=== PATIENT | male | born 1945 | race Asian ===

== ENCOUNTER → 2016-09-11 | Outpatient (CLI) | payer OTHER ==
[~2016-09-11] MED LIST: ALDACTAZIDE PO; ALPHA LIPOIC A100 MG PO; ALPHA LIPOIC AC PO; AUGMENTIN875 MG PO; B COMPLEX1 CA1 PO; BOT PO; CHLORELLA; CHLORELLA CAPS1 EACH PO; CHLORELLA PO; CIPROFLOXA PO; CO Q-1010 MG PO; CORDYCEPS; EXFORGE 5-320 M1 TAB PO; FERROUS SULFATE PO; GLYBURIDE-METFO1 TA4 PO; HYDRALAZINE HCL25 MG PO; HYDROCODON-ACE1 EAC9 PO; LANTUS SOLOSTAR3 ML SUBQ; LISINOPRIL PO; LYCOPENE PO; METFORMIN HCL500 M1 PO; METOPROLOL TAR25 MG PO; MULTI VITAMIN1 EACH PO; NORVASC PO; ONGLYZA5 MG PO; PHENERGAN25 M1 PO; POTASSIUM99 M1 PO; PRILOSEC40 MG PO; PROSTATE HEALT1 EACH PO; SAW PALMETTO CA1 CAP PO; VITAMIN D1000 UNI1 PO; VITAMIN D400 UNI2 PO; VITAMIN E100 UNIT PO; VITAMIN E400 UNI1 PO
--- NOTE | ~2016-09-11 | CT2 ---
[facility] A Service [facility] RADIOLOGY TEXT RESULTS PATIENT: SHERRELL KABA [facility] 43 [facility] #: [id number] AGE: [address]: Georgi Durant MD SEX: M ORDER DR: [id number] [address] [id number] O MR#: [id number] Acc #: [id number] NAME: SHERRELL KABA : 1945 SEX: M STUDY DATE/TIME: 09/11/2016 11:21 UNIT: [facility] ROOM: STUDY DESCRIPTION: CT Abd and Pelv W Cont Attending Physician: Georgi Durant M.D. Referring Physician: Georgi Durant M.D. Ordering Physician: Georgi Durant M.D. Primary Care Physician: Pamela Barragan M.D. MEDICAL IMAGING REPORT This report is preliminary unless electronic signature is present EXAM CT abdomen and pelvis with contrast INDICATION Restaging colon cancer. Observation for metastatic disease. PROCEDURE Contrast-enhanced CT of the abdomen and pelvis. 100 mL of Isovue-370. TECHNIQUE This CT exam was performed with one or more of the following radiation dose reduction techniques: automatic exposure control, adjustment of mA and/or kV according to patient size, and iterative reconstruction. COMPARISON 09/20/2015 FINDINGS ABDOMEN WITH CONTRAST: There is stable scarring or chronic atelectasis in the medial left lung base. The liver, spleen, adrenal glands. Pancreas, gallbladder unremarkable. There is a 2.4 cm cyst in the lower pole of the left kidney. Postsurgical change in the sigmoid colon with no abnormal soft tissue. Moderate colonic stool burden. The bowel loops are nondilated. PELVIS WITH CONTRAST: Prostate enlarged measuring 6.1 cm. No pelvic mass or adenopathy. No aggressive appearing bone lesion. IMPRESSION 1. Postsurgical change sigmoid colon. No abnormal associated soft tissue. No convincing evidence for abdominal or pelvic metastatic disease. [facility] A Service [facility] RADIOLOGY TEXT RESULTS PATIENT: SHERRELL KABA LOCATION: [facility] : 43 UNIT #: [id number] AGE: [address]: Georgi Durant MD SEX: M ORDER DR: 2. Prostatomegaly. Dictated by... Eduardo Corrales M.D. THIS IS AN ELECTRONICALLY VERIFIED REPORT Eduardo Corrales M.D. at 09/12/2016 3:56 PM David TD: 09/12/2016 09:11 JOB #: [id number] MEDICAL IMAGING REPORT Page 1 of 1 COPY
[2016-09-11 12:36] LABS: POC - CREATININE 0.82 mg/dL (0.64-1.27); POC - GFR >60.0 mL/min (>60)
== END | disposition home or self-care (01) ==
LOC: CCAT 09:37
PROVIDERS: Internal Medicine Medical Oncology
DX: C18.9 Malignant neoplasm of colon, unspecified (principal); D50.9 Iron deficiency anemia, unspecified; N40.0 Benign prostatic hyperplasia without lower urinary tract symptoms; Z98.890 Other specified postprocedural states
CPT/HCPCS: 74177; 82565; Q9967